=== PATIENT | male | born 1975 | race Caucasian/White ===

== ENCOUNTER → 2023-09-17 06:39 | Day surgery (SDC) | payer OTHER, SELFPAY | LOC: GI 06:39 | PROVIDERS: ATTENDING PHYSICIAN Internal Medicine | DX: Z12.11 Encounter for screening for malignant neoplasm of colon (principal); D12.2 Benign neoplasm of ascending colon | CPT/HCPCS: 45385; 88305 ==

== ENCOUNTER 2024-07-17 19:47 | Emergency (ER) | payer OTHER, SELFPAY ==
[2024-07-17 19:52] VITALS: BP 125/82
[2024-07-17 20:08] LABS: % Basophils 0.9 % (0-2); % Eosinophils 3.4 % (0-6); % Immature Granulocytes 0.2 % (0-0.5); % Lymphocytes 37.9 % (20.5-51.1); % Monocytes 9.3 % (1.7-9.3); % Neutrophils 48.3 % (42.2-75.2); Absolute Basophils 0.1 10^3/uL (0-0.2); Absolute Eosinophils 0.2 10^3/uL (0-0.7); Absolute Lymphocytes 2.2 10^3/uL (1.2-3.4); Absolute Monocytes 0.5 10^3/uL (0.1-0.6); Absolute Neutrophils 2.8 10^3/uL (1.4-6.5); Hematocrit 44.7 % (39.0-52.0); Hemoglobin 15.7 g/dL (13.0-18.0); Mean Corp Hgb Conc. 35.1 g/dL (33.0-37.0); Mean Corpuscular Hgb 31.8 pg (27.0-31.0); Mean Corpuscular Volume 90.7 fL (80.0-94.0); Mean Platelet Volume 9.1 fL (7.4-10.4); Nucleated Red Blood Cells % 0 % (-); Platelet Count 234 10^3/uL (130-400); Red Blood Cell Count 4.93 10^6/uL (4.70-6.10); Red Cell Dist. Width 11.7 % (11.5-14.5); White Blood Cell Count 5.8 10^3/uL (4.8-10.8)
[2024-07-17 20:24] LABS: ALT (SGPT) 25 U/L (0-50); AST (SGOT) 22 U/L (17-59); Albumin 4.6 g/dl (3.5-5.0); Alkaline Phosphatase 60 U/L (38-126); Blood Urea Nitrogen 23 mg/dl (9-20); Calcium 9.6 mg/dl (8.4-10.2); Carbon Dioxide 29 mmol/L (22-30); Chloride 102 mmol/L (98-107); Glucose 121 mg/dl (70-99); Potassium 4.3 mmol/L (3.5-5.1); Sodium 139 mmol/L (135-145); Total Bilirubin 0.9 mg/dl (0.2-1.3); Total Protein 6.9 g/dl (6.3-8.2); eGFR > 60.00
[2024-07-17 20:25] LABS: Lipase 162 U/L (23-300)
[2024-07-17 20:31] LABS: Troponin I < 0.012 ng/ml
--- NOTE | 2024-07-17 21:40 | ED.GENMED ---
History of Present Illness
General
Chief Complaint: Chest Pain
Source: patient
Exam Limitations: none
Time Seen by Provider: 07/17/24 21:38
History of Present Illness
History of Present Illness:
49yoM with a remote history of localized melanoma in remission presenting with his for evaluation of chest pain. Patient started to experience left-sided chest discomfort around 7 PM this evening. He states it started to feel like a dull pain
in his chest. He initially thought he may have pulled a muscle. He stood up and became lightheaded at which point he decided to come to the ED for evaluation. Patient's pain is currently improved but is still present. Pain is worse with deep
breathing. He is otherwise asymptomatic and denies any diaphoresis, nausea, syncope, leg swelling. No tobacco use. No family history of heart disease.
Phy Exam
General Physical Exam
General Presentation: well appearing and no apparent distress
General age: appears stated age
General Skin: warm and dry
General Habitus: normal
General Mental: alert
ENT Exam
ENT Exam: normocephalic
Cardiovascular Exam
Cardiovascular Exam: regular rate/rhythm, no edema and no murmur
Pulmonary Exam
Pulmonary Exam: no respiratory distress, no rales, no crackles, no rhonchi, no wheezing and other (+Mild tenderness L anterior chest wall. No skin changes.)
Neurological Exam
Neurological Exam: alert
Mica Coma Scale
Eye Opening: Spontaneous
Verbal Response: Oriented
Motor Response: Obeys Commands
GCS Total Score: 15
Skin Exam
Skin Exam: normal color and warm/dry
Psychiatric Exam
Psychiatric Exam: normal mood/affect
Scores
Heart Score for Chest Pain Patients
STEMI patient?: No
History: Slightly or Non-Suspicious
ECG: Normal
Age: >45 - <65 years
Risk Factors: No Risk Factors
Troponin: </= Normal Limit
Heart Score for Chest Pain Patients: 1
Heart Score Risk: 2.5% MACE over next 6 weeks
Course
Orders/Labs/Results
Orders:
Orders
07/17/24 19:48
EKG [Electrocardiogram (*1)] Urgent
Reason for Study: Chest Pain
EKG- Treatment ONCE
07/17/24 19:58
CR Chest - 2 Views Urgent
Comment:
Reason For Exam: chest pain
07/17/24 20:01
Complete Blood Count/With Diff Urgent
Comprehensive Metabolic Panel Urgent
Lipase Urgent
Troponin I Urgent
07/17/24 22:01
Cardiac Monitoring- Treatment ONCE
EKG- Treatment ONCE
07/17/24 22:14
D-Dimer Urgent
07/17/24 23:00
Electrocardiogram (*1) Urgent
Reason for Study: Chest Pain
07/17/24 23:33
Troponin I Urgent
Abnormal Lab Results
07/17/24
20:01
MCH 31.8 H pg
(27.0-31.0)
BUN 23 H mg/dl
(9-20)
Glucose 121 H mg/dl
(70-99)
07/17/24 20:01
07/17/24 20:01
Vital Signs
Initial and Last Documented VS:
Initial Vital Signs
Temp Pulse Resp BP Pulse Ox
97.9 F 87 16 125/82 96
07/17/24 19:52 07/17/24 19:52 07/17/24 19:52 07/17/24 19:52 07/17/24 19:52
Last Documented Vital Signs
Temp Pulse Resp BP Pulse Ox
97.9 F 81 17 119/75 95
07/17/24 19:52 07/17/24 22:05 07/17/24 22:05 07/17/24 22:05 07/17/24 22:05
MDM/Problems Addressed
Differential Diagnosis Includes:
49yoM here with dull L sided chest pain that started this evening. Worse with deep breathing. Currently feeling improved. VSS. There is mild chest wall tenderness on exam. Remainder of exam is reassuring. Differential diagnosis includes but is not
limited to: Musculoskeletal, pleurisy, pneumonia, pneumothorax, PE, ACS
Initial ED plan: Cardiac labs, EKG, and chest x-ray obtained in triage. EKG shows normal sinus rhythm without ischemic changes and troponin within normal limits. Chest x-ray is clear. Will check D-dimer and delta troponin/EKG.
*EKG
Interpreted by ED Provider?: Yes
EKG Intrepretation Date: 07/17/24
Heart Rate: 85
Rate: normal
Rhythm: sinus
Covel: normal axis
Interval: normal interval
QRS Pattern: normal QRS
Ischemia: no ischemia
*Critical Care Note
Total Time (30-74mins, 75-104mins- exclusive of procedures): Not Applicable
Update Note
Update Note:
D-dimer normal making PE very unlikely. Repeat EKG and troponin unchanged. Pain has completely resolved on reassessment. No indication for hospitalization. Suspect musculoskeletal pain. Supportive care discussed and advised follow-up with PCP.
ED return precautions reviewed. Patient in agreement with plan and was discharged in stable condition.
ED Attending Note
-
Portions of this chart may have been created with voice recognition software.� Occasional wrong word or��sound alike� substitutions may have occurred due to the inherent limitations of voice recognition software.
Discharge Plan
Departure
Patient Disposition: Home (Routine Discharge)
Date of Disposition: 07/18/24
Time of Disposition: 00:31
Patient with high blood pressure during this ER visit?: No
Discharge Problem:
Atypical chest pain
Instructions: Chest Pain PCP Follow Up
Referrals:
Hannah Morris DO [Family Provider] -
Activity Restrictions/Additional Instructions:
Please follow-up with your family doctor. Return to the ER with any new or worsening symptoms.
Interventions
Interventions:
*Risk Screen - Suicide Last Done: 07/17/24 21:55
*General Assessment Last Done: 07/17/24 21:55
*Neglect/Abuse Screening Last Done: 07/17/24 21:55
*ED- Fall Risk Assessment Last Done: 07/17/24 21:55
*ED COVID-19 Vaccine History Last Done: 07/17/24 21:55
ED- Cardiac Assessment Last Done: 07/17/24 21:55
Discharge Date and Time
Print Language: MAURITANIAN
[2024-07-17 21:55] VITALS: BMI 27.4
[2024-07-17 22:05] VITALS: BP 119/75
[2024-07-17 22:37] LABS: D-Dimer < 0.27 ug/mlFEU (0.00-0.50)
[2024-07-17 23:00] VITALS: BP 113/73
[2024-07-18] VITALS: BP 118/69
[2024-07-18 00:22] LABS: Troponin I < 0.012 ng/ml
== END 2024-07-18 00:40 | disposition home or self-care (01) ==
LOC: EMR 19:47
PROVIDERS: Physician Assistant; Student in an Organized Health Care Education/Training Program; EMERGENCY PHYSICIAN Emergency Medicine; FAMILY PHYSICIAN Family Medicine
DX: R07.89 Other chest pain (principal); Z85.820 Personal history of malignant melanoma of skin
CPT/HCPCS: 99285; 71046; 80053; 83690; 84484; 85025; 85379; 93005